=== PATIENT | male | born 1975 | race American Indian/Alaskan Native ===

== ENCOUNTER 2018-11-09 10:50 | Outpatient (CLI) | payer BC | END 2018-11-09 10:51 | disposition home or self-care (01) | LOC: C.PAT 10:50 | DX: K40.90 Unilateral inguinal hernia, without obstruction or gangrene, not specified as recurrent (principal) ==

== ENCOUNTER 2018-11-11 09:47 | Day surgery (SDC) | payer BC ==
[2018-11-09 11:09] VITALS: BMI 22.4
[2018-11-11] MEDS ORDERED: Midazolam 2 MG/2 ML VIAL ONE (12:40)
[2018-11-11] MEDS ORDERED: Propofol 10 mg/ml Inj (20 ML) ONE (12:40)
[2018-11-11] MEDS ORDERED: ceFAZolin 1 gm in NS 2 GM/200 ML BAG IVPB ONE (12:59)
[2018-11-11] MEDS ORDERED: Bupivacaine 0.25% 20 ML INJ IJ ONE (12:59)
[2018-11-11] MEDS ORDERED: Lidocaine/Epinephrine 1% 1:100000 10 ML IJ ONE (12:59)
[2018-11-11] MEDS: Sodium Chloride 0.9% 40 ML IV ONE ×2 (13:31→14:43)
[2018-11-11] MEDS: Bupivacaine Liposomal Inj 20 ml INFIL ONE ×2 (13:32→14:43)
[2018-11-11] MEDS ORDERED: Neostigmine 1:1000 (1 mg/ml) Inj ONE (14:42)
[2018-11-11] MEDS: HYDROmorphone 0.5 mg/0.5 ml ISec IVP PRN ×2 (15:18→15:33)
[2018-11-11] MEDS ORDERED: Oxycodone/Acetaminophen 5/325 mg Tab PO PRN (15:58)
--- NOTE | 2018-11-11 16:04 | PCM.SURG1 ---
Surgeon's Initial Post Op Note - Surgeon's Notes Surgeon: Dr. Jose Business Change Manager: Jaden [id number] CFA Type of Anesthesia: General Endo, Local Pre-Operative Diagnosis: recurrent Left inguinal hernia Operative Findings: recurrent left inguinal hernia Post-Operative Diagnosis: recurrent left inguinal hernia Operation Performed: Robotic left ingunial hernia repair with mesh Specimen/Specimens Removed: N/A Estimated Blood Loss: EBL {In ML}: 10 Blood Products Given: N/A Drains Used: No Drains Date of Surgery/Procedure: 11/11/18 Time of Surgery/Procedure: 15:30
[2018-11-11] MEDS ORDERED: Sodium Chloride 0.9% 1,000 ML IV ONE (16:15)
[2018-11-11 16:50] VITALS: O2SAT 97
[2018-11-11 17:09] VITALS: RESP 18; TEMP 97.6
[2018-11-11 17:11] VITALS: BP 121/71; PULSE 83
--- NOTE | 2018-11-16 03:01 | OP ---
PROCEDURE DATE: 11/11/2018 PREOPERATIVE DIAGNOSES: 1. Recurrent left inguinal hernia. 2. Left groin pain. 3. Possible postoperative adhesion due to previous open operation. POSTOPERATIVE DIAGNOSES: 1. Recurrent left inguinal hernia. 2. Left groin pain. 3. Possible postoperative adhesion due to previous open operation. PROCEDURE DONE: 1. Robotic left recurrent inguinal hernia repair with mesh. 2. Robotic removal of the old mesh plug. 3. Robotic adhesiolysis due to previous open operation. 4. Robotic bilateral transversus abdominis plane block placement. SURGEON: Gee Jose MD SOFTWARE SUPPORT ANALYST: HEATH Yi and Bronson Simon, PGY-2 resident. TYPE OF ANESTHESIA: General endotracheal tube anesthesia. ESTIMATED BLOOD LOSS: Around 10 mL. DRAINS: None. PATHOLOGY: The old hernia plug was sent for pathology. COMPLICATIONS: None. INTRAOPERATIVE FINDINGS: The patient had left recurrent complete indirect inguinal hernia and the patient had a patent hernial sac and the patient also had mesh plug placed at the internal ring and the patient also had extensive adhesions due to the previous open operation in the right lower quadrant. DESCRIPTION OF PROCEDURE: On intraoperative steps, this is a 43-year-old male who was diagnosed with recurrent left inguinal hernia and the patient also had abnormal pain and the patient was consented for the robotic left inguinal hernia repair with a mesh. Brought to the OR, placed supine on the operating table. After induction of the anesthesia, the abdomen was prepped and draped in a usual sterile fashion. The supraumbilical incision was made using the open technique. Peritoneal cavity was entered. Pneumo was created. Another three 8-mm port was placed in the upper abdomen. Robot was brought in. Camera arm as well as arm-1 and arm-2 were docked and peritoneum was incised from the midline up to the left ASIS and after that, the midline dissection was done up to the space of Retzius in the preperitoneal space, and now the laterally, the peritoneal reflection was from the lateral abdominal wall and the patient had extensive adhesion in the anterior abdominal wall due to the previous open repair, and with blunt and sharp dissection, the extensive adhesiolysis was done. The inferior epigastric artery was identified. The patient also had extensive adhesion due to the mesh plug and that was also lysed and partly the mesh plug was excised and it was sent off the table for pathology. Now, the patient had direct sac that was reduced back and it was from the vas deferens and spermatic cord vessels. An inferior dissection was done up to the pelvic brim, and after that, left anatomical mesh was placed. After proper placement of the mesh, the peritoneum was sutured with 0 Vicryl as well as 3-0 PDS V-Loc continuous suture, and after that, bilateral TAP block was given. The 30:30 mL of Exparel with saline was injected into the transverse abdominis muscles plain area and after proper TAP block bilaterally, all the ports were taken out under vision. Pneumo was deflated. Umbilical port site was closed in two layers, the fascia with 0 Vicryl interrupted sutures, skin with a 4-0 Monocryl and dry sterile dressing was applied. The patient tolerated the procedure well. Count of instrument and gauze were correct. There were no apparent complications. The patient was extubated in OR and sent to the postanesthesia care unit in stable condition. Gee Jose MD
== END 2018-11-11 17:25 | disposition home or self-care (01) ==
LOC: C.SDS 09:47
PROVIDERS: ATTEND Surgery Surgical Critical Care
DX: K40.90 Unilateral inguinal hernia, without obstruction or gangrene, not specified as recurrent (principal)
CPT/HCPCS: 49651; 88305; C1781; J0690; J1170; J2250; J2405; J2704; J2710; J3010; J7030; J7120